=== PATIENT | male | born 1970 | race African-American/Black ===

== ENCOUNTER 2017-08-18 15:07 | Inpatient (IN) | payer OTHER ==
[~2017-08-18] VITALS: Ht 167.6 cm; Wt 68.0 kg
[2017-09-03] MEDS ORDERED: LOPRESSOR25 MG PO (14:50)
== END 2017-09-03 15:04 | disposition home or self-care (01) | DRG 438 ==
LOC: ER 15:07 → ICU-2 08-19 08:40 → ICU 08-19 08:40 → MEDI 08-19 08:40 → ICU 08-19 15:18 → MEDI 08-29 14:56
PROC: BF37ZZZ Magnetic Resonance Imaging (MRI) of Pancreas (ICD-10-PCS; 2017-08-19)
PROC: 3E0336Z Introduction of Nutritional Substance into Peripheral Vein, Percutaneous Approach (ICD-10-PCS; 2017-08-20)
PROC: 5A1945Z Respiratory Ventilation, 24-96 Consecutive Hours (ICD-10-PCS; principal; 2017-08-21)
PROC: 0BH17EZ Insertion of Endotracheal Airway into Trachea, Via Natural or Artificial Opening (ICD-10-PCS; 2017-08-21)
PROC: 4A033R1 Measurement of Arterial Saturation, Peripheral, Percutaneous Approach (ICD-10-PCS; 2017-08-21)
PROC: BW21Y0Z Computerized Tomography (CT Scan) of Abdomen and Pelvis using Other Contrast, Unenhanced and Enhanced (ICD-10-PCS; 2017-08-27)
DX: K85.21 Alcohol induced acute pancreatitis with uninfected necrosis (principal); J96.01 Acute respiratory failure with hypoxia; N17.8 Other acute kidney failure; J90 Pleural effusion, not elsewhere classified; F10.231 Alcohol dependence with withdrawal delirium; E87.0 Hyperosmolality and hypernatremia; D69.59 Other secondary thrombocytopenia